=== PATIENT | male | born 1950 | race Caucasian/White ===

== ENCOUNTER 2016-09-03 15:04 | Inpatient (IN) | payer MEDICARE, OTHER ==
--- NOTE | ~2016-09-03 | CN ---
Consultation Report [facility] [address] [place]. [address] NAME: GENNY MANUEL : 50 STATUS : ADM IN [facility]#: [id number] AGE: 66 ADM/REG DATE : 09/03/16 MR#: [id number] REPORT SERV DATE: 09/04/16 DICTATED BY: RONDA HARRIS IV DATE: 09/04/16 REPORT STATUS : Draft TRANSCRIBED BY: CRISTÓBAL DATE: 09/04/16 CRITICAL CARE CONSULTATION DATE OF CONSULTATION: 09/04/2016 TIME SEEN: 0750 to 0915 for 85 minutes of critical care time. REASON FOR REQUEST: Worsening hypoxemic respiratory failure. HISTORY OF PRESENT ILLNESS: History was obtained from records and from the patient and . Mr. Manuel is a 66-year-old male with a history of ischemic cardiomyopathy with ejection fraction 20%-25%; coronary artery disease; atrial fibrillation; hypothyroidism; obstructive sleep apnea, on CPAP; hypertension; chronic kidney disease; questionable COPD, who was admitted on 09/03 with several days of fevers, chills, sweats, myalgias, and worsening left hip pain, now with worsening diffuse pulmonary infiltrates and hypoxemia. The patient was in his normal state of health until several days ago when he developed fever, sensation, chills, sweats, and diffuse myalgias. This occurred four to five days prior to his presentation. He denied any cough or significant shortness of breath at that time, though the patient's does note that he appeared more short of breath. He had worsening diffuse pain particularly in his hip for which he was admitted. He underwent a CT scan demonstrating no significant pathology. He had some borderline blood pressure with a low BNP for which the treating team thought he may be somewhat dry, so gave him albumin as well as fluid. He developed worsening oxygenation and worsening infiltrates for which he was moved to the intensive care unit. The patient is currently saturating adequately on Vapotherm. There was no exposure to any ill individuals. There was no exposures to agents usually associated with hypersensitivity pneumonitis. He is not on bronchodilator medication at home. He is on supplemental oxygen only at nighttime with the CPAP. The patient carries a diagnosis of obstructive sleep apnea of unclear severity. He is on CPAP of unknown settings. PULMONARY HISTORY: Remarkable for no history of childhood asthma. He has had pneumonia in the past. There is a questionable history of COPD. He is a [id number] smoker, having quit about 20 years ago. 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 He refuses immunizations. PAST MEDICAL HISTORY: 1. Ischemic cardiomyopathy, ejection fraction 20%-25%. 2. Coronary artery disease, status post several stents. 3. Atrial fibrillation. 4. Hypothyroidism, on replacement therapy. 5. Obstructive sleep apnea, on CPAP. 6. Hypertension. 7. Chronic kidney disease. Consultation Report [facility] [id number] [place]. [address] NAME: GENNY MANUEL : 50 STATUS : ADM IN PAT#: [id number] AGE: 66 ADM/REG DATE : 09/03/16 MR#: [id number] REPORT SERV DATE: 09/04/16 DICTATED BY: RONDA HARRIS IV DATE: 09/04/16 REPORT STATUS : Draft TRANSCRIBED BY: CRISTÓBAL DATE: 09/04/16 8. Questionable COPD. SURGERIES: The patient has had the multiple stents in the past as noted. He has had an AICD biventricular pacemaker placement. ALLERGIES: THERE ARE NO KNOWN DRUG ALLERGIES. MEDICATIONS: Currently at the time of transfer include Bumex 4 mg twice a day orally, Cordarone 200 mg daily, Coumadin, insulin sliding scale, DuoNebs every six hours, vancomycin per pharmacy, Lipitor 40 mg daily, Maxipime 1 g q.6 hours, Neurontin 400 mg q.8 hours, Synthroid 50 mcg daily, Toprol-XL 25 mg daily, and Zyloprim 100 mg daily. SOCIAL HISTORY: Remarkable for the remote tobacco use as above. There was no significant alcohol and no illicit drug use. He is , has two children. FAMILY HISTORY: Remarkable for mother with pancreatic carcinoma. Father had multiple myeloma. A maternal uncle with some congenital cardiac defect. REVIEW OF SYSTEMS: 14 systems reviewed and pertinent positives noted above. PHYSICAL EXAMINATION: GENERAL: This is an obese, pleasant, elderly male, in mild to moderate respiratory distress. He is on Vapotherm. VITAL SIGNS: Temperature is 98.7, pulse is 110, respiratory rate is 25, saturation 98% on Vapotherm, blood pressure is 92/50. HEENT: Normocephalic, atraumatic. Extraocular movements are intact. Pupils react to light. Sclerae and conjunctivae normal. He has nasal cannula in place. He has a Mallampati 4 airway with significant narrowing of the posterior pharyngeal space. NECK: Without any palpable lymphadenopathy or thyromegaly. CHEST: The patient has decreased breath sounds symmetrically, a prolonged expiratory phase with expiratory wheezes. There are bilateral inspiratory crackles. No rhonchi are noted. He has an AICD in his left anterior chest. CARDIOVASCULAR: Jugular venous pulsations are difficult to elicit secondary to body habitus. He has 1+ carotid upstrokes. No obvious bruit. He has a very distant tachycardic, S1, S2, with no clear murmur or S3. Peripheral pulses are diminished. ABDOMEN: Obese, soft. There are hypoactive bowel sounds. There is no palpable hepatosplenomegaly or masses. EXTREMITIES: Demonstrate chronic venous stasis changes. There is trace pretibial edema. There is no cyanosis, clubbing, or palpable cords. NEUROLOGIC: Strength is 5/5. Sensation is decreased in a stocking distribution. LABORATORY DATA: Chest x-ray demonstrates cardiomegaly, AICD in place. There are bilateral pulmonary infiltrates, the right slightly more than left, most consistent with pulmonary edema pattern. CBC: Hemoglobin 7.1, hematocrit 21.3, platelet count was 198,000, white Consultation Report [place] [id number] [facility] [place]. [address] NAME: GENNY MANUEL : 50 STATUS : ADM IN [facility]#: [id number] AGE: 66 ADM/REG DATE : 09/03/16 MR#: [id number] REPORT SERV DATE: 09/04/16 DICTATED BY: RONDA HARRIS IV DATE: 09/04/16 REPORT STATUS : Draft TRANSCRIBED BY: MODL DATE: 09/04/16 count is 19. PTT is 140, INR is 9.5. Sodium is 136, potassium 3.8, chloride 98, bicarbonate 28, BUN of 46, creatinine 1.61, glucose of 130, magnesium is 2. Total bilirubin is 1.4, SGOT is 43, CPK is 1139, troponin is 0.05. TSH is 2.04. Blood gas; pH 7.4, pCO2 of 36, PO2 of 65. ASSESSMENT/PLAN: 1. Respiratory. Radiographic appearance is more consistent with pulmonary edema despite the low BNP. He will be treated as if this is a component of chronic obstructive pulmonary disease exacerbation. Steroids will be given 40 mg twice a day, which we will also treat if this is a diffuse pneumonia. DuoNeb will be made q.4 hours while awake and q.4h hours as needed with EzPAP if not on the BiPAP. He will be given Brovana unit dose twice a day, and Pulmicort 1 mg twice a day. Vapotherm will be continued to maintain FiO2 in the 90% to 98% range. BiPAP if he has clinical worsening. Daily x-ray will be obtained. 2. Infectious disease. Would avoid drugs that have QT effects to include Levaquin and the erythromycin group. Vancomycin and cefepime will be continued. Doxycycline will be given for atypicals at 100 mg twice a day. Procalcitonin level will be obtained. Urine antigen was sent for Legionella and Pneumococcus. Sputum sample will be sent for Gram stain and culture if possible. 3. Cardiovascular. Would avoid fluids even though the BNP is low. I think there is a cardiac component possibly because of MR. Levophed will be given if needed to maintain mean arterial pressure greater than 60. Dobutamine would be considered. Will follow troponin with levels in the morning. 4. Hematologic. Vitamin K IV. Would not give FFP. If we need to reverse him, I would give PCC. If there is evidence for GI bleeding. INR will be obtained later today and daily hemoglobin and hematocrit will be checked q.6 hours. Type and screen two units with blood if less than 7. 5. Renal. We will follow and replace the potassium. 6. Neurologic. Precedex if needed. If intolerant of the BiPAP, fentanyl be given as needed for breakthrough pain. Thiamine will be given 200 mg daily. 7. Gastrointestinal. Cardiac diet has been ordered. Protonix will be continued. 8. Endocrinologic. Will remain on the Synthroid with an adequate TSH. The patient will be given insulin sliding scale with elevated blood sugars at this time which will likely worsen with steroids. Hemoglobin A1c was okay in the past. 9. Social. I had a long talk with the patient and the concerning his current critical situation and possible to further deterioration. We discussed his wishes concerning aggressiveness of resuscitation. The patient would be okay with noninvasive ventilation, however, does not want "heroic measures." We clarified this to mean he would not want intubation, external cardioversion defibrillation, medications for malignant dysrhythmias, or CPR. This has been ordered. They are competent to make this decision. The patient will be admitted to the CCU under the Critical Care team. I will assume primary responsibilities. Consultation Report [place] [id number] [place]. [address] NAME: EGNNY MANUEL : 50 STATUS : ADM IN [facility]#: [id number] AGE: 66 ADM/REG DATE : 09/03/16 MR#: [id number] REPORT SERV DATE: 09/04/16 DICTATED BY: RONDA HARRIS IV DATE: 09/04/16 REPORT STATUS : Draft TRANSCRIBED BY: CRISTÓBAL DATE: 09/04/16 FARRAH/CRISTÓBAL Ronda Harris IV, M.D. / [id number] CC: Fredy Ferguson M.D.
--- NOTE | ~2016-09-03 | DS ---
Discharge Summary [facility] [address] [place]. [address] NAME: GENNY MANUEL : 50 STATUS : DIS IN PAT#: [id number] AGE: 66 ADM/REG DATE : 09/03/16 MR#: [id number] REPORT SERV DATE: 09/05/16 DICTATED BY: RONDA HARRSI IV DATE: 09/04/16 REPORT STATUS : Draft TRANSCRIBED BY: MODGuido DATE: 09/04/16 ADMISSION DATE: 09/03/2016 DISCHARGE DATE: 09/04/2016 SUMMARY DATE OF : 09/04/2016. CAUSE OF : 1. Acute hypoxemic respiratory failure, unresponsive to BiPAP. 2. Cardiogenic pulmonary edema. 3. Ischemic cardiomyopathy, ejection fraction 20%. 4. Clinical multilobar pneumonia. 5. Coagulopathy, being treated. 6. Blood loss anemia, not requiring transfusion. 7. Clinical chronic obstructive pulmonary disease, exacerbation, on therapy. 8. Chronic kidney disease. 9. Obstructive sleep apnea, with BiPAP treatment. 10.Biventricular pacemaker with history of atrial fibrillation. CONSULTANTS: The patient was initially admitted to the Hospitalist Service with agile qa tester consulted on the day of decompensation on 09/04/2016 and he at that time, he was moved to the intensive care unit. PROCEDURES: The patient underwent placement of a PICC line on 09/04/2016. HOSPITAL COURSE: The patient was admitted to the Hospitalist Service on 09/03/2016 with complaints of some shortness of breath with fevers, chills, and sweats with myalgias for several days and marked right hip pain. The BNP was not elevated on presentation, but the patient had a significant coagulopathy. Because of a marginal blood pressure, he was given some fluid boluses for concern for sepsis and several doses of 25 g of albumin. Then in the fountain pen nibs inspector of 09/04/2016 the patient developed increasing shortness of breath with a chest x-ray demonstrating increasing bilateral infiltrates. The patient was initially moved to [address] [place] [address] and then moved to the Intensive Care Unit. He was initially able to be oxygenated with the Vapotherm, though continued to decompensate, so he was transitioned to BiPAP. He was given his oral diuretic as well as IV diuretic and vitamin K for his coagulopathy. His antibiotics were broadened. Initially he had adequate blood pressures though as his respiratory status worsened and he became more tachycardic. His blood pressure dropped as did his saturations. The discussion with the patient and family when he first came to the ICU was concerning his resuscitative status. The patient requested no heroic measures which included no ventilation, CPR, medications for malignant rhythms, or external shocks though he did have an internal defibrillator. As the patient began to deteriorate, he was given some low-dose Dilaudid titrated for comfort and was given Precedex. Despite this, he rapidly deteriorated initially dropping his sats and then rapidly dropping his blood pressure. It was discussed that Levophed could be initiated, which was started, but despite this he continued to deteriorate and became apneic. The Discharge Summary [address] [place]. [address] NAME: GENNY MANUEL : 50 STATUS : DIS IN PAT#: [id number] AGE: 66 ADM/REG DATE : 09/03/16 MR#: [id number] REPORT SERV DATE: 09/05/16 DICTATED BY: RONDA HARRIS IV DATE: 09/04/16 REPORT STATUS : Draft TRANSCRIBED BY: CRISTÓBAL DATE: 09/04/16 patient continued to have electrical activity; however, there was no pulse associated with this and he was pronounced at 1520. He had earlier in the day he requested a manager study whom had seen the patient. The was made aware of his decompensation, unfortunately she was not present. No autopsy was recommended. DICTATED BY: Beatrice Crawford IV/CRISTÓBAL Ronda Harris IV, M.D. / [id number] CC: Beatrice Baez D.O.
--- NOTE | ~2016-09-03 | HP ---
History And Physical [place] [id number] [facility] [place]. [address] NAME: GENNY MANUEL : 50 STATUS : ADM Chad PAT#: [id number] AGE: 66 ADM/REG DATE : 09/03/16 MR#: [id number] REPORT SERV DATE: 09/04/16 DICTATED BY: PILAR CASPER DATE: 09/03/16 REPORT STATUS : Draft TRANSCRIBED BY: MODL DATE: 09/03/16 DATE OF ADMISSION: 09/03/2016 CHIEF COMPLAINT: A 66-year-old male presenting with left hip pain and shortness of breath. HISTORY OF PRESENT ILLNESS: The patient's history was obtained through careful interview with the patient, , coupled with review of [facility] medical records. For about two weeks, the patient has been feeling weak with generalized soreness and myalgias. But over the last several days, he has had a primary complaint of left hip pain. He has chronic back pain and hip pain, but it has really progressed to the point where it is debilitating now. He describes an aching quality pain, 10/10 severity that radiates from his left hip all the way down to his foot, and is continuous. Over these last several days, the patient has also been extremely lethargic, lying in bed most of the day. If he tries to get up, he has extreme dyspnea on exertion and a mild nonproductive cough. He has been trying to use a heating pad for relief of his hip pain. He has had subjective fevers and chills for two days. Today, the patient had the syncopal episode while in his house trying to walk. He felt lightheaded prior to that. He was perhaps passed out for only a minute. He has had slight nausea, no vomiting a very poor appetite for several days. No diarrhea. No chest pain. REVIEW OF SYSTEMS: Otherwise, a 14-point review of systems was obtained and was negative. PAST MEDICAL HISTORY: 1. Systolic congestive heart failure. Ejection fraction of 20%. 2. Coronary artery disease, status post stent placement x8, began when he was 46 years old. 3. AICD/pacer placement at the [facility]. 4. Atrial fibrillation. 5. Hypothyroidism. 6. Gout. 7. Chronic back pain. 8. Chronically elevated troponin up to 0.14. 9. Obstructive sleep apnea, on nasal cannula oxygen. 10.Hypertension. 11.Chronic kidney disease stage 3. Baseline creatinine of 1.5 to 1.6. History And Physical [address] [address] NAME: GENNY MANUEL : 50 STATUS : ADM Chad PAT#: [id number] AGE: 66 ADM/REG DATE : 09/03/16 MR#: [id number] REPORT SERV DATE: 09/04/16 DICTATED BY: PILAR CASPER DATE: 09/03/16 REPORT STATUS : Draft TRANSCRIBED BY: CRISTÓBAL DATE: 09/03/16 PAST SURGICAL HISTORY: AICD/pacer placement. ALLERGIES: NO KNOWN DRUG ALLERGIES. SOCIAL HISTORY: He quit smoking cigarettes, but still smokes an occasional cigar. Rare alcohol use. He is . Lives in [place], [place]. Has two children. 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 He is actually involved in research that showed that 81 mg of aspirin is as effective as 650 or 325 mg of aspirin and also worked on enteric-coated aspirin formulas. He also served in [employer] for 19 years and was in the [place] War. FAMILY HISTORY: Coronary artery disease. CURRENT MEDICATIONS: Include allopurinol 100 mg p.o. daily, amiodarone 200 mg p.o. daily, Lipitor 40 mg p.o. daily, Bumex 4 mg p.o. b.i.d., Neurontin 400 mg p.o. t.i.d., hydrocodone p.r.n., levothyroxine 50 mcg p.o. daily, metoprolol-XL 25 mg p.o. daily, potassium 20 mEq p.o. daily, Coumadin 10 mg alternating with 5 mg. PHYSICAL EXAMINATION: VITAL SIGNS: Temperature 98.6, pulse 107, blood pressure 100/59, but it had dropped as low as 91/39. After IV fluid bolus, the patient's mean arterial pressure was consistently between 63 and 66, quite borderline, respiratory rate 21, O2 saturation 96% on 6 L nasal cannula. GENERAL: An ill-appearing male, in evidence of described distress secondary to left hip pain mostly, but also some shortness of breath. HEENT: Pupils equal, round, and reactive to light. No conjunctival pallor. No scleral icterus. Nares are patent. Oropharynx is clear of obstruction. Moist mucous membranes. NECK: Trachea midline. No thyromegaly. LYMPH: No cervical lymphadenopathy. No supraclavicular lymphadenopathy. RESPIRATORY: The patient has diminished breath sounds at the right base of lung, particularly in the peripheral aspect. I do not appreciate egophony though. The patient has no wheezes. Currently, no rales. He does have a labored respiratory effort. CARDIOVASCULAR: Tachycardic, regular rhythm. No murmurs, rubs, or gallops. No extremity edema is appreciated. ABDOMEN: Soft, nontender, nondistended. Normal bowel sounds auscultated throughout. No hepatosplenomegaly. DERMATOLOGICAL: The patient does have a little dotted petechiae around his ankles and lower shins symmetrically. Otherwise, warm and dry extremities. No pallor. No cyanosis. PSYCHIATRIC: Normal affect. Pleasant mood. Alert and oriented x3. LABORATORY DATA: White blood cell count 20.3, hemoglobin 9.3, hematocrit 27.3, platelets 223. Sodium 134, potassium 3.7, chloride 96, bicarb 30, BUN 38, creatinine 1.58, glucose 131. Brain natriuretic peptide 166. Troponin 0.04. Albumin 2.9. AST 42, ALT 27, alkaline phosphatase was 52, total bilirubin 1.6. STUDIES: Chest x-ray by my own evaluation shows right lower lung pneumonia compared to chest x-ray in February 2016. History And Physical [address] [address] NAME: GENNY MANUEL : 50 STATUS : ADM Chad PAT#: [id number] AGE: 66 ADM/REG DATE : 09/03/16 MR#: [id number] REPORT SERV DATE: 09/04/16 DICTATED BY: PILAR CASPER DATE: 09/03/16 REPORT STATUS : Draft TRANSCRIBED BY: CRISTÓBAL DATE: 09/03/16 ASSESSMENT AND PLAN: 1. Severe sepsis with shock. Lactic acid is still pending. Check blood cultures. The patient has hypoxia, tachypnea, tachycardia, white blood cell count of 20.3, and a shock. Place on IV fluids. Place on IV antibiotics. 2. Right-sided pneumonia. Check blood cultures. Check IV and place on IV antibiotics. Check Legionella. Check Strep. 3. Hypoxic respiratory failure. Provide supportive care. 4. Chronic systolic congestive heart failure. Ejection fraction of 20%. Monitor volume status closely, particularly with IV fluid boluses for the patient's underlying sepsis. 5. Left hip pain, quite debilitating and worsened from chronic pain. We will check a CT scan left hip. Place on IV narcotic pain management as needed. 6. Chronic kidney disease stage 3. KPL/MODL Pilar Casper M.D. / [id number] CC: Fredy Ferguson M.D.
[~2016-09-03 15:04] MED LIST: ASAB PO; BUM2 PO; C25 PO; C5 PO; CORDARONE PO; COUMADIN10 MG PO; KDUR20 PO; KLOR-CON M2020 MEQ PO; LEVOTHYROXIN50 MCG PO; LIPITOR40 PO; NEUR400 PO; NORCO1 TA1 PO; NORCO1 TA2 PO; PACERONE200 MG PO; PRIN5 PO; SYN.05 PO; TOPXL25 PO; Z100 PO; Z5 PO
[2016-09-03 15:14] LABS: BASOPHILS 0.1 %; BASOPHILS ABSOLUTE 0.03 10/3/uL (0.0-0.16); EOSINOPHILS 0 %; HEMATOCRIT 27.3 % (40.0-51.0); HEMOGLOBIN 9.3 g/dL (13.6-17.8); IMMATURE GRANULOCYTES 0.6 %; IMMATURE GRANULOCYTES ABSOLUTE 0.13 10/3/uL (0.0-0.11); LYMPHOCYTES 5.4 %; LYMPHOCYTES ABSOLUTE 1.09 10/3/uL (0.67-4.30); MANUAL DIFF NO %; MEAN CORPUS HGB CONC 34.1 g/dL (32.0-36.0); MEAN CORPUSCULAR HEMOGLOB 29.6 pg (26.0-34.0); MEAN CORPUSCULAR VOLUME 86.9 fL (80-100); MEAN PLATELET VOLUME 10.1 fL (9.2-13.0); MONOCYTES 7.6 %; MONOCYTES ABSOLUTE 1.54 10/3/uL (0.21-1.20); NEUTROPHILS 86.3 %; NEUTROPHILS ABSOLUTE 17.54 10/3/uL (2.02-8.40); PLATELET COUNT 223 10/3/uL (150-400); RBC DISTRIBUTION WIDTH 17.3 % (12.0-16.0); RED CELL COUNT 3.14 10/6/uL (4.7-6.1); WHITE BLOOD CELLS 20.3 10/3/uL (4.5-10.5)
[2016-09-03 15:27] LABS: ALBUMIN 2.9 G/DL (3.5-5.0); ALKALINE PHOSPHATASE 52 U/L (45-117); CALCIUM, SERUM 7.7 MG/DL (8.5-10.4); CHEST PAIN PROFILE TAT 0 Hrs 30 Mins; CHLORIDE, SERUM 96 MMOL/L (96-112); CO2 (CARBON DIOXIDE) 30 MMOL/L (24-34); CREATININE 1.58 MG/DL (0.70-1.30); GFR AFRICAN AMERICAN 52 ML/MIN (>=60); GFR NON AFRICAN AMERICAN 45 ML/MIN (>=60); GLUCOSE, SERUM 131 MG/DL (60-99); POTASSIUM, SERUM 3.7 MMOL/L (3.5-5.3); SGOT(AST) 42 U/L (5-40); SGPT(ALT) 27 U/L (5-65); SODIUM, SERUM 134 MMOL/L (135-148); TOTAL PROTEIN 6.9 G/DL (6.0-8.5); TROPONIN I 0.04 NG/ML (<0.05)
[2016-09-03 15:32] LABS: BUN (BLOOD UREA NITROGEN) 38 MG/DL (6-23); DIRECT BILIRUBIN 0.3 MG/DL (0.0-0.4); INDIRECT BILIRUBIN(NOT ORDER) 1.3 MG/DL (0.1-0.9); TOTAL BILIRUBIN 1.6 MG/DL (0-1.2)
[2016-09-03 19:17] LABS: INTERNATIONAL NORMAL RATI > 15.0 UNITS (-); PARTIAL THROMBO TIME > 150.0 SEC (22.5-37.2); PROTIME (NOT ORD) > 120.0 SEC (12.0-14.5)
[2016-09-03 23:08] LABS: ALLENS TEST Pos; BE (BASE EXCESS) 2.5 MEQ/L (0 +/- 2.5); CARBOXYHEMOGLOBIN 0.7 % (0-3); DEVICE HFNC; HCO3 (ACTUAL BICARBONATE) 26.1 MEQ/L (23-27); HEMOBLOGIN CONTENT 9.1 G/DL (14-18); INSTRUMENT SERIAL # 35151; METHEMOGLOBIN 0.3 % (0-3); O2 CONTENT 11.7 VOL% (18-24); PCO2 (CO2 TENSION) 36 MMHG (35-45); PO2 (O2 TENSION) 65 MMHG (79-93); SAMPLE Arterial; pH 7.48 (7.37-7.43)
[2016-09-04 04:32] LABS: BASOPHILS 0.1 %; BASOPHILS ABSOLUTE 0.02 10/3/uL (0.0-0.16); EOSINOPHILS 0.1 %; EOSINOPHILS ABSOLUTE 0.01 10/3/uL (0.0-0.53); IMMATURE GRANULOCYTES 0.8 %; IMMATURE GRANULOCYTES ABSOLUTE 0.15 10/3/uL (0.0-0.11); LYMPHOCYTES 11.2 %; LYMPHOCYTES ABSOLUTE 2.12 10/3/uL (0.67-4.30); MEAN CORPUS HGB CONC 33.3 g/dL (32.0-36.0); MEAN CORPUSCULAR HEMOGLOB 29.5 pg (26.0-34.0); MEAN CORPUSCULAR VOLUME 88.4 fL (80-100); MEAN PLATELET VOLUME 10.7 fL (9.2-13.0); MONOCYTES 11.1 %; MONOCYTES ABSOLUTE 2.11 10/3/uL (0.21-1.20); NEUTROPHILS 76.7 %; NUCLEATED RED BLOOD CELLS 0.2 /100WBC (0-0); PLATELET COUNT 198 10/3/uL (150-400); RBC DISTRIBUTION WIDTH 17.1 % (12.0-16.0)
[2016-09-04 04:35] LABS: HEMATOCRIT 21.3 % (40.0-51.0); HEMOGLOBIN 7.1 g/dL (13.6-17.8); MANUAL DIFF NO %; RED CELL COUNT 2.41 10/6/uL (4.7-6.1)
[2016-09-04 04:44] LABS: INTERNATIONAL NORMAL RATI 9.5 UNITS (-); PARTIAL THROMBO TIME 140.3 SEC (22.5-37.2); PROTIME (NOT ORD) 76.2 SEC (12.0-14.5)
[2016-09-04 05:03] LABS: A/G RATIO 0.9 (0.7-1.9); ALBUMIN 3.4 G/DL (3.5-5.0); ALKALINE PHOSPHATASE 43 U/L (45-117); CALCIUM, SERUM 7.7 MG/DL (8.5-10.4); CHLORIDE, SERUM 98 MMOL/L (96-112); CK-MB 7.5 NG/ML; CO2 (CARBON DIOXIDE) 28 MMOL/L (24-34); CPK 1139 U/L (0-200); CREATININE 1.61 MG/DL (0.70-1.30); GFR AFRICAN AMERICAN 51 ML/MIN (>=60); GFR NON AFRICAN AMERICAN 44 ML/MIN (>=60); GLOBULIN 3.6 G/DL (2.5-4.1); GLUCOSE, SERUM 130 MG/DL (60-99); POTASSIUM, SERUM 3.8 MMOL/L (3.5-5.3); SGOT(AST) 43 U/L (5-40); SGPT(ALT) 26 U/L (5-65); SODIUM, SERUM 136 MMOL/L (135-148); TOTAL BILIRUBIN 1.4 MG/DL (0-1.2)
[2016-09-04 05:08] LABS: BUN (BLOOD UREA NITROGEN) 46 MG/DL (6-23)
[2016-09-04 05:09] LABS: CKMB INDEX (NOT ORD) 0.7; TROPONIN I 0.05 NG/ML (<0.05)
[2016-09-04 10:49] LABS: PROCALCITONIN 0.42 ng/mL (<0.5)
[2016-09-04 11:36] LABS: PHOSPHORUS, SERUM 2.2 MG/DL (2.5-4.5)
[2016-09-04 13:41] LABS: WBC (NOT ORDERED) (RFLEX) 0 (0-5)
[2016-09-04 13:53] LABS: ASCORBIC ACID (UR NOT ORDER) NEG (NEG); BILIRUBIN, URINE NEGATIVE (NEG); KETONE, URINE NEGATIVE (NEG); LEUKOCYTE ESTERASE(NOT OR NEG (NEG)
[2016-09-04 15:17] LABS: HEMATOCRIT 21.8 % (40.0-51.0); HEMOGLOBIN 7.1 g/dL (13.6-17.8)
[2016-09-04 15:25] LABS: INTERNATIONAL NORMAL RATI 6.5 UNITS (-); PROTIME (NOT ORD) 56.5 SEC (12.0-14.5)
== END 2016-09-04 15:30 | disposition expired | DRG 871 ==
LOC: ER 15:04 → 4SO 18:33 → 6NO 21:41 → CCU 09-04 06:10
PROVIDERS: Emergency Medicine; Hospitalist; Internal Medicine; Internal Medicine Critical Care Medicine
PROC: 5A09457 Assistance with Respiratory Ventilation, 24-96 Consecutive Hours, Continuous Positive Airway Pressure (ICD-10-PCS; principal; 2016-09-03)
PROC: 02HV33Z Insertion of Infusion Device into Superior Vena Cava, Percutaneous Approach (ICD-10-PCS; 2016-09-03)
PROC: 4A02X4A Measurement of Cardiac Electrical Activity, Guidance, External Approach (ICD-10-PCS; 2016-09-03)
DX: A41.9 Sepsis, unspecified organism (principal); R65.21 Severe sepsis with septic shock; J96.01 Acute respiratory failure with hypoxia; J18.9 Pneumonia, unspecified organism; I50.22 Chronic systolic (congestive) heart failure; Z99.81 Dependence on supplemental oxygen; D68.9 Coagulation defect, unspecified; J44.0 Chronic obstructive pulmonary disease with (acute) lower respiratory infection; J44.1 Chronic obstructive pulmonary disease with (acute) exacerbation; I48.91 Unspecified atrial fibrillation; N18.3 Chronic kidney disease, stage 3 (moderate); M25.552 Pain in left hip; D64.9 Anemia, unspecified; I25.5 Ischemic cardiomyopathy; I25.10 Atherosclerotic heart disease of native coronary artery without angina pectoris; E03.9 Hypothyroidism, unspecified; G47.33 Obstructive sleep apnea (adult) (pediatric); M10.9 Gout, unspecified; Z87.891 Personal history of nicotine dependence; Z95.5 Presence of coronary angioplasty implant and graft; Z85.89 Personal history of malignant neoplasm of other organs and systems; Z95.810 Presence of automatic (implantable) cardiac defibrillator
CPT/HCPCS: 36415; 36569; 36597; 36600; 71010; 73700-LT; 80048; 80053; 80076; 81001; 82330; 82550; 82553; 82803; 82805; 82947; 82962; 83605; 83735; 83880; 84100; 84132; 84145; 84295; 84443; 84484; 85014; 85018; 85025; 85610; 85730; 86850; 86900; 86901; 86920; 87040; 87449; 87641; 93005; 94640; 94660; 96374; 96375; 99285; A9270-GY; C1751; C9113; J0456; J0692; J1170; J1956; J2405; J2920; J3370; J3411; J3430; P9047; P9059